=== PATIENT | female | born 1980 | race African-American/Black ===

== ENCOUNTER → 2017-03-01 | Outpatient (CLI) | payer MEDICAID ==
--- NOTE | 2017-03-01 16:03 | WOMENS IMAGING REPORT ---
EXAM DESCRIPTION: BILAT SCREENING MAMMO W/CAD COMPLETED DATE/TIME: 03/01/2017 3:48 pm REASON FOR STUDY: ROUTINE SCREENING; Z12.31 Z12.31 ENCNTR SCREEN MAMMOGRAM FOR MALIGNANT NEOPLASM O F ALTHEA COMPARISON: None. TECHNIQUE: Standard craniocaudal and mediolateral oblique views of each breast recorded using digita l acquisition. Bilateral exaggerated craniocaudad views were also obtained LIMITATIONS: None. FINDINGS: No masses, calcifications or architectural distortion. No areas of suspicion. Read with the assistance of CAD. .[facility] - R2 Cenova Version 1.3 .[facility] - R2 Cenova Version 1.3 .[facility] - R2 Cenova Version 2.4 .[facility] - R2 Cenova Version 2.4 .[facility] - R2 Bellows Tester Version 9.2 IMPRESSION: NORMAL MAMMOGRAM. BIRADS 1. BREAST DENSITY: b. There are scattered areas of fibroglandular density. BIRAD: 1 NEGATIVE RECOMMENDATION: ROUTINE SCREENING COMMENT: The patient has been notified of the results by letter per MQSA requirements. Additional no tification policies are in place for contacting patient with suspicious or incomplete findings. Quality ID #[id number]: The [employer] recommends an annual screening mammogram for women aged 40 years or over. This facility utilizes a reminder system to ensure that all patients receive reminder letters, and/or direct phone calls for appointments. This includes reminders for routine scr eening mammograms, diagnostic mammograms, or other Breast Imaging Interventions when appropriate. Th is patient will be placed in the appropriate reminder system. The [employer] (ACR) has developed recommendations for screening MRI of the breast s in certain patient populations, to be used in conjunction with mammography. Breast MRI surveillanc e may be appropriate for women with more than 20% lifetime risk of developing breast cancer as deter mined by genetic testing, significant family history of the disease, or history of mantle radiation f or Hodgkins Disease. ACR Practice Guidelines 2008. TECHNICAL DOCUMENTATION: FINDING NUMBER: (1) ASSESSMENT: (1) JOB ID: [id number] [employer]- All Rights Reserved
== END ==
LOC: WI 15:02
PROVIDERS: ATTEND Internal Medicine
DX: Z12.31 Encounter for screening mammogram for malignant neoplasm of breast (principal)
CPT/HCPCS: 77067; G0202

== ENCOUNTER 2017-08-28 19:15 | Emergency (ER) | payer MEDICAID ==
[2017-08-28 21:36] LABS: ABSOLUTE EOSINOPHILS # (AUTO) 0.1 10^3/uL (0.0-0.6); ABSOLUTE LYMPHOCYTES (AUTO) 1.9 10^3/uL (0.5-4.7); ABSOLUTE MONOCYTES (AUTO) 0.5 10^3/uL (0.1-1.4); ABSOLUTE NEUT (AUTO) 3.9 10^3/uL (1.7-8.2); BASOPHILS % (AUTO) 0.6 % (0-2); EOSINOPHILS % (AUTO) 1.9 % (0-6); HEMATOCRIT 39.5 % (36.0-47.0); HEMOGLOBIN 13.6 g/dL (12.0-15.5); LYMPHOCYTES % (AUTO) 29.5 % (13-45); MEAN CORPUSCULAR HEMOGLOBIN 31.4 pg (27.0-33.4); MEAN CORPUSCULAR HGB CONC 34.4 g/dL (32.0-36.0); MEAN CORPUSCULAR VOLUME 91 fl (80-97); MONOCYTES % (AUTO) 7.7 % (3-13); PLATELET COUNT 259 10^3/uL (150-450); RED BLOOD COUNT 4.33 10^6/uL (3.72-5.28); RED CELL DISTRIBUTION WIDTH 13.3 % (11.5-14.0); SEGMENTED NEUTROPHILS % (AUTO) 60.3 % (42-78); TOTAL CELLS COUNTED % (AUTO) 100 %; WHITE BLOOD COUNT 6.5 10^3/uL (4.0-10.5)
[2017-08-28 21:44] LABS: ALANINE AMINOTRANSFERASE 94 U/L (9-52); ALBUMIN 4.8 g/dL (3.5-5.0); ALKALINE PHOSPHATASE 52 U/L (38-126); ANION GAP 13 (5-19); ASPARTATE AMINO TRANSFERASE 68 U/L (14-36); BILIRUBIN,DIRECT 0.2 mg/dL (0.0-0.4); BILIRUBIN,TOTAL 3.6 mg/dL (0.2-1.3); BLOOD UREA NITROGEN 10 mg/dL (7-20); CALCIUM 9.9 mg/dL (8.4-10.2); CARBON DIOXIDE 32 mmol/L (22-30); CHLORIDE 103 mmol/L (98-107); GLUCOSE 87 mg/dL (75-110); POTASSIUM 3.4 mmol/L (3.6-5.0); SODIUM 147.6 mmol/L (137-145); TOTAL PROTEIN 8.2 g/dL (6.3-8.2)
--- NOTE | 2017-08-28 21:51 | ER Document Report ---
ED General - General Mode of Arrival: Ambulatory Information source: Patient TRAVEL OUTSIDE OF THE [place] IN LAST 30 DAYS: No <SADE MCPHERSON - Last Filed: 08/28/17 22:09> <PADMINI NICOLE - Last Filed: 08/28/17 22:45> - General Chief Complaint: Bloody Stools Stated Complaint: BLOOD IN STOOL Time Seen by Provider: 08/28/17 21:33 Notes: Patient is a 36 year old female hypertension, thyroid dysfunction, hyperlipidemia, diabetes, CAD, asthma presents to the emergency department complaining of bloody stools and dizziness onset today. Patient states she normally has half-formed, watery, "mucousy" stools but today she states the toilet was filled with bright red and dark blood, further stating this has never happened to her before. Patient's associated symptoms include epigastric abdominal pain, right hip pain and back pain. Patient states she was previously told she had internal hemorrhoids in May after a colonoscopy was performed. Patient states she is currently on Lomotil as needed for IBS. She states the last dose she took was 3 days ago. (SADE MCPHERSON) - Related Data Allergies/Adverse Reactions: No Known Allergies Allergy (Verified 08/28/17 19:17) Past Medical History - General Information source: Patient - Social History Smoking Status: Never Smoker Chew tobacco use (# tins/day): No Frequency of alcohol use: Rare Drug Abuse: None Family History: CAD, DM, Hyperlipidemia, Hypertension, Malignancy, Thyroid Disfunction Patient has suicidal ideation: No Patient has homicidal ideation: No - Past Medical History Cardiac Medical History: Reports: Hx Hypertension Pulmonary Medical History: Reports: Hx Asthma - as a child , Hx Pneumonia, Hx Sleep Apnea Neurological Medical History: Reports: Hx Migraine Endocrine Medical History: Reports: Hx Hypothyroidism GI Medical History: Reports: Hx Gastroesophageal Reflux Disease, Hx Irritable Bowel, Hx Liver Failure - problems not failure Musculoskeltal Medical History: Reports Hx Musculoskeletal Trauma - foot fracture right Psychiatric Medical History: Reports: Hx Anxiety Traumatic Medical History: Reports: Hx Fractures - foot right Past Surgical History: Reports: Hx Cholecystectomy - Immunizations Immunizations up to date: Yes Hx Diphtheria, Pertussis, Tetanus Vaccination: Yes Hx Pneumococcal Vaccination: 03/18/00 <SADE MCPHERSON - Last Filed: 06/13/18 22:09> Review of Systems - Review of Systems Constitutional: No symptoms reported EENT: No symptoms reported Cardiovascular: No symptoms reported Respiratory: No symptoms reported Gastrointestinal: See HPI, Abdominal pain, Black stools Genitourinary: No symptoms reported Female Genitourinary: No symptoms reported Musculoskeletal: See HPI, Back pain Skin: No symptoms reported Hematologic/Lymphatic: No symptoms reported Neurological/Psychological: No symptoms reported -: Yes All other systems reviewed and negative <SADE MCPHERSON - Last Filed: 08/28/17 22:09> Physical Exam - General General appearance: Appears well, Alert In distress: None - HEENT Head: Normocephalic, Atraumatic Eyes: Normal Conjunctiva: Normal Extraocular movements intact: Yes Pupils: PERRL Neck: Normal - Respiratory Respiratory status: No respiratory distress - Cardiovascular Rhythm: Regular - Abdominal Inspection: Morbidly Obese Distension: No distension Bowel sounds: Normal Tenderness: Nontender Organomegaly: No organomegaly - Back Back: Normal - Extremities General upper extremity: Normal ROM General lower extremity: Normal ROM - Neurological Neuro grossly intact: Yes Cognition: Normal Orientation: AAOx4 Sharla Coma Scale Eye Opening: Spontaneous Sharla Coma Scale Verbal: Oriented Sharla Coma Scale Motor: Obeys Commands Sharla Coma Scale Total: 15 Speech: Normal - Psychological Associated symptoms: Normal affect, Normal mood - Skin Skin Temperature: Warm Skin Moisture: Dry Skin Color: Normal <SADE MCPHERSON - Last Filed: 08/28/17 22:09> - Rectal Tenderness: No Stool: Heme positive Hemorrhoids: None. No: Anal fissure <PADMINI NICOLE - Last Filed: 08/28/17 22:45> - Vital signs Vitals: Temp Pulse Resp BP Pulse Ox 98.9 F 100 20 150/90 H 95 08/28/17 19:42 08/28/17 19:42 08/28/17 19:42 08/28/17 19:42 08/28/17 19:42 - Rectal Notes: There was no stool on digital rectal exam, there was trace reddish color in the mucus retrieved. There was no gross blood on the fingertip. (PADMINI NICOLE) Course - Laboratory Result Diagrams: 08/28/17 21:24 08/28/17 21:24 <SADE MCPHERSON - Last Filed: 08/28/17 22:09> - Laboratory Result Diagrams: 08/28/17 21:24 08/28/17 21:24 <PADMINI NICOLE - Last Filed: 08/28/17 22:45> - Vital Signs Vital signs: Temp Pulse Resp BP Pulse Ox 98.9 F 100 20 150/90 H 95 08/28/17 19:42 08/28/17 19:42 08/28/17 19:42 08/28/17 19:42 08/28/17 19:42 - Laboratory Laboratory results interpreted by me: 08/28/17 21:24 Sodium 147.6 H Potassium 3.4 L Carbon Dioxide 32 H Total Bilirubin 3.6 H AST 68 H ALT 94 H Discharge <SADE MCPHERSON - Last Filed: 08/28/17 22:09> <APDMINI NICOLE - Last Filed: 08/28/17 22:45> - Discharge Clinical Impression: Rectal bleeding High blood pressure Qualifiers: Hypertension type: essential hypertension Qualified Code(s): I10 - Essential ( primary) hypertension Condition: Stable Disposition: HOME, SELF-CARE Additional Instructions: Rectal Bleeding, Unclear Cause No definite cause has been found for the rectal bleeding you have experienced. Among the possible causes are internal or external hemorrhoids ( internal hemorrhoids can't be felt on the outside), an anal fissure (a crack at the anal ring), infections or inflammatory diseases of the colon, tumors or polyps, or diverticula (diverticula are outpouchings from the colon wall). To establish a cause for your bleeding (or at least make certain there is no serious problem such as a tumor), further evaluation will be necessary. This may include special X-rays, or passage of a scope up into the colon. Be sure to keep your follow-up appointment. Should you develop brisk bleeding, abdominal pain, fever, lightheadedness, or fever, call the doctor or return at once. Your blood pressure was a little elevated this evening. Be sure that you do not miss your blood pressure medications. Check your blood pressure over the next few days to be sure it returns to normal. 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 RETURN TO THE EMERGENCY ROOM IF ANY NEW OR WORSENING SYMPTOMS. Referrals: SHAGGY IRENE MD [Primary Care Provider] - Follow up in 3-5 days Scribe Attestation: 08/28/17 22:43 I personally performed the services described in the documentation, reviewed and edited the documentation which was dictated to the scribe in my presence, and it accurately records my words and actions. (PADMINI NICOLE) Scribe Documentation - Scribe Written by Gopal:: Gopal Vargas, 08/31/2017 21:59 acting as scribe for :: Kati <SADE MCPHERSON - Last Filed: 08/28/17 22:09>
[2017-08-28 23:03] VITALS: BP 122/66
== END 2017-08-28 22:59 | disposition home or self-care (01) ==
LOC: ER 19:15
DX: K62.5 Hemorrhage of anus and rectum (principal); I10 Essential (primary) hypertension; E11.9 Type 2 diabetes mellitus without complications; I25.10 Atherosclerotic heart disease of native coronary artery without angina pectoris; J45.909 Unspecified asthma, uncomplicated; K58.9 Irritable bowel syndrome, unspecified; R10.13 Epigastric pain; R42 Dizziness and giddiness; M25.551 Pain in right hip; M54.9 Dorsalgia, unspecified; Z87.19 Personal history of other diseases of the digestive system; Z90.49 Acquired absence of other specified parts of digestive tract
CPT/HCPCS: 36415; 80053; 82272; 85025; 99284

== ENCOUNTER 2018-07-03 21:12 | Emergency (ER) | payer MEDICAID ==
--- NOTE | 2018-07-03 22:18 | ER Document Report ---
ED Medical Screen (RME) - General Chief Complaint: Cyst Stated Complaint: ABCESS Time Seen by Provider: 07/03/18 22:16 Primary Care Provider: SHAGGY IRENE MD [Primary Care Provider] - Follow up as needed TRAVEL OUTSIDE OF THE [place] IN LAST 30 DAYS: No - HPI Notes: 07/03/18 22:16 Patient is a 37-year-old female who presents emergency department complaining of possible Bartholin abscess that is been present for about 1 month, but started draining over the last couple days. Patient states that she has had this before which needed incision and drainage. Denies MAYBERRY, fever, neck pain, URI, CP, SOB, Abd pain, or rash. I have treated and performed a rapid initial assessment of this patient. A comprehensive ED assessment and evaluation of the patient, analysis of test re sults and completion of medical decision making process will be conducted by additional ED providers. PHYSICAL EXAMINATION: GENERAL: Well-appearing, well-nourished and in no acute distress. A&Ox4. Answers questions appropriately. LUNGS: Breath sounds clear to auscultation bilaterally and equal. No wheezes rales or rhonchi. HEART: Regular rate and rhythm without murmurs, rubs, gallops. - Related Data Allergies/Adverse Reactions: No Known Allergies Allergy (Verified 08/28/17 19:17) Past Medical History - Social History Chew tobacco use (# tins/day): No Frequency of alcohol use: None Drug Abuse: None - Past Medical History Cardiac Medical History: Reports: Hx Hypertension Denies: Hx Heart Attack Pulmonary Medical History: Reports: Hx Asthma - as a child , Hx Pneumonia, Hx Sleep Apnea Denies: Hx Bronchitis, Hx COPD, Hx Tuberculosis Neurological Medical History: Reports: Hx Migraine. Denies: Hx Seizures Endocrine Medical History: Reports: Hx Hypothyroidism Renal/ Medical History: Denies: Hx Peritoneal Dialysis GI Medical History: Reports: Hx Gastroesophageal Reflux Disease, Hx Irritable Bowel, Hx Liver Failure - problems not failure Musculoskeltal Medical History: Denies Hx Arthritis, Reports Hx Musculoskeletal Trauma - foot fracture right Psychiatric Medical History: Reports: Hx Anxiety Traumatic Medical History: Reports: Hx Fractures - foot right Past Surgical History: Reports: Hx Cholecystectomy. Denies: Hx Pacemaker - Immunizations Immunizations up to date: Yes Hx Diphtheria, Pertussis, Tetanus Vaccination: Yes Physical Exam - Vital signs Vitals: Temp Pulse Resp BP Pulse Ox 98.7 F 87 16 154/97 H 96 07/03/18 21:28 07/03/18 21:28 07/03/18 21:28 07/03/18 21:28 07/03/18 21:28 Course - Vital Signs Vital signs: Temp Pulse Resp BP Pulse Ox 98.7 F 87 16 154/97 H 96 07/03/18 21:28 07/03/18 21:28 07/03/18 21:28 07/03/18 21:28 07/03/18 21:28 Doctor's Discharge - Discharge Referrals: SHAGGY IRENE MD [Primary Care Provider] - Follow up as needed
--- NOTE | 2018-07-04 01:40 | ER Document Report ---
ED General - General Chief Complaint: Cyst Stated Complaint: ABCESS Time Seen by Provider: 07/03/18 22:16 Primary Care Provider: MARY MANRIQUE MD [ACTIVE STAFF] - 07/07/18 Notes: Patient is a pleasant 37-year-old female presents with complaint of swelling to her labia. She says she is unsure if she has both events just. Said swelling started today. States she noticed a little bit of possible clear drainage e arlier but that has since stopped. No fevers. She says it is mildly painful. No other complaints at this time. TRAVEL OUTSIDE OF THE [place] IN LAST 30 DAYS: No - Related Data Allergies/Adverse Reactions: No Known Allergies Allergy (Verified 08/28/17 19:17) Past Medical History - Social History Smoking Status: Never Smoker Chew tobacco use (# tins/day): No Frequency of alcohol use: None Drug Abuse: None Family History: CAD, DM, Hyperlipidemia, Hypertension, Malignancy, Thyroid Disfunction Patient has suicidal ideation: No Patient has homicidal ideation: No - Past Medical History Cardiac Medical History: Reports: Hx Hypertension Denies: Hx Heart Attack Pulmonary Medical History: Reports: Hx Asthma - as a child , Hx Pneumonia, Hx Sleep Apnea Denies: Hx Bronchitis, Hx COPD, Hx Tuberculosis Neurological Medical History: Reports: Hx Migraine. Denies: Hx Seizures Endocrine Medical History: Reports: Hx Hypothyroidism Renal/ Medical History: Denies: Hx Peritoneal Dialysis GI Medical History: Reports: Hx Gastroesophageal Reflux Disease, Hx Irritable Bowel, Hx Liver Failure - problems not failure Musculoskeletal Medical History: Denies Hx Arthritis, Reports Hx Musculoskeletal Trauma - foot fracture right Psychiatric Medical History: Reports: Hx Anxiety Traumatic Medical History: Reports: Hx Fractures - foot right Past Surgical History: Reports: Hx Cholecystectomy. Denies: Hx Pacemaker - Immunizations Immunizations up to date: Yes Hx Diphtheria, Pertussis, Tetanus Vaccination: Yes Hx Pneumococcal Vaccination: 03/18/00 Review of Systems - Review of Systems Notes: My Normal Review Basic REVIEW OF SYSTEMS: CONSTITUTIONAL : Denies fever, chills, or sweats. Denies recent illness. RESPIRATORY: Denies cough, cold, or chest congestion. Denies shortness of breath, difficulty breathing, or wheezing. GASTROINTESTINAL: Denies abdominal pain. Denies nausea, vomiting, or diarrhea. GENITOURINARY: Denies difficulty urinating, painful urination, burning, frequency, or blood in urine. FEMALE GENITOURINARY: Right-sided labial swelling. MUSCULOSKELETAL: Denies neck or back pain or joint pain or swelling. SKIN: Denies rash or skin lesions. ALL OTHER SYSTEMS REVIEWED AND NEGATIVE. Physical Exam - Vital signs Vitals: Temp Pulse Resp BP Pulse Ox 98.7 F 87 16 154/97 H 96 07/03/18 21:28 07/03/18 21:28 07/03/18 21:28 07/03/18 21:28 07/03/18 21:28 - Notes Notes: General Appearance: Well nourished, alert, cooperative, no acute distress, no obvious discomfort. Vitals: reviewed, See vital signs table. Eyes: PERRL, EOMI, Conjuctiva clear Abdomen: Normal BS, soft, No rigidity, No abdominal tenderness, No guarding, no rebound, no abdominal masses, no organomegaly Genitalia: Pelvic exam performed with female nurse at bedside, Cheryl Pink. Patient has a very large swelling to the right labia. Is not abnormally red or erythematous. It is not hot or warm to touch. It does not appear infected. The area of swelling is tense but fluidlike and feeling. Leg is so swollen that I cannot see down into the vaginal introitus. It is very balloon-like. No abnormal drainage. No pustules seen. Skin: warm, dry, appropriate color, no rash Neuro: speech clear, oriented x 3, normal affect, responds appropriately to questions. Course - Re-evaluation Re-evalutation: 07/04/18 05:44 Patient's labial swelling did not seem consistent with Bartholin gland cyst. I therefore spoke with gynecology, Dr. Manrique. She says is likely that she probably has an inclusion cyst to the labia. She said that the patient come to the office on Saturday and she will evaluate her and determine the best way to approach her labial swelling. There is no abnormal warmth or redness to the labia. It is not seen consistent with infection or abscess. I informed patient of the plan and she is agreeable to it. I encouraged her return to ER immediately if she has severe pain, fevers, spreading redness, or if she has any further concerns. Patient agrees with plan and will be discharged home. Dictation of this chart was performed using voice recognition software; therefore, there may be some unintended grammatical errors. - Vital Signs Vital signs: Temp Pulse Resp BP Pulse Ox 98.3 F 80 19 159/90 H 98 07/04/18 02:05 07/04/18 02:05 07/04/18 02:05 07/04/18 02:05 07/04/18 02:05 Discharge - Discharge Clinical Impression: Labial swelling Condition: Good Disposition: HOME, SELF-CARE Additional Instructions: I discussed your case with Dr. Mary Manrique. 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 She suspects that swelling labia could be related to a vaginal inclusion cyst. This may eventually require drainage. She wants to come to the office on Saturday. Please call the office this morning and inform the aoc plans intelligence officer chief that you are seen in the ER and Dr. Manrique wants to see you on Saturday in the office to treat your vaginal swelling. Please return to the ER immediately if you have redness or swelling spreading beyond the vaginal labia, inability to urinate, fevers, or severe pain. Forms: Return to Work Referrals: MARY MANRIQUE MD [ACTIVE STAFF] - 07/07/18
[2018-07-04 02:10] VITALS: BP 159/90
== END 2018-07-04 02:11 | disposition home or self-care (01) ==
LOC: ER 21:12
DX: N90.89 Other specified noninflammatory disorders of vulva and perineum (principal); I10 Essential (primary) hypertension; J45.909 Unspecified asthma, uncomplicated
CPT/HCPCS: 99283

== ENCOUNTER 2018-07-06 08:43 | Emergency (ER) | payer MEDICAID ==
[2018-07-06 10:18] LABS: ABSOLUTE BASOPHILS # (AUTO) 0.1 10^3/uL (0.0-0.2); ABSOLUTE EOSINOPHILS # (AUTO) 0.3 10^3/uL (0.0-0.6); ABSOLUTE LYMPHOCYTES (AUTO) 1.9 10^3/uL (0.5-4.7); ABSOLUTE MONOCYTES (AUTO) 0.4 10^3/uL (0.1-1.4); BASOPHILS % (AUTO) 0.8 % (0-2); EOSINOPHILS % (AUTO) 3.3 % (0-6); HEMATOCRIT 38.1 % (36.0-47.0); HEMOGLOBIN 13.6 g/dL (12.0-15.5); LYMPHOCYTES % (AUTO) 24.8 % (13-45); MEAN CORPUSCULAR HEMOGLOBIN 31.8 pg (27.0-33.4); MEAN CORPUSCULAR HGB CONC 35.6 g/dL (32.0-36.0); MEAN CORPUSCULAR VOLUME 89 fl (80-97); MONOCYTES % (AUTO) 5.5 % (3-13); PLATELET COUNT 258 10^3/uL (150-450); RED BLOOD COUNT 4.27 10^6/uL (3.72-5.28); RED CELL DISTRIBUTION WIDTH 13.1 % (11.5-14.0); SEGMENTED NEUTROPHILS % (AUTO) 65.6 % (42-78); TOTAL CELLS COUNTED % (AUTO) 100 %; WHITE BLOOD COUNT 7.6 10^3/uL (4.0-10.5)
[2018-07-06 10:36] LABS: ALANINE AMINOTRANSFERASE 28 U/L (9-52); ALBUMIN 4.6 g/dL (3.5-5.0); ALKALINE PHOSPHATASE 69 U/L (38-126); ANION GAP 7 (5-19); ASPARTATE AMINO TRANSFERASE 34 U/L (14-36); BILIRUBIN,DIRECT 0.5 mg/dL (0.0-0.4); BILIRUBIN,TOTAL 3.8 mg/dL (0.2-1.3); BLOOD UREA NITROGEN 20 mg/dL (7-20); CARBON DIOXIDE 29 mmol/L (22-30); CHLORIDE 104 mmol/L (98-107); GLUCOSE 99 mg/dL (75-110); POTASSIUM 3.4 mmol/L (3.6-5.0); SODIUM 140.2 mmol/L (137-145); TOTAL PROTEIN 8.5 g/dL (6.3-8.2)
[2018-07-06] MEDS ORDERED: KETOROLAC TROMETHAMINE INJ/PF 30 MG/1 ML SDV IV ONE (10:57)
[2018-07-06] MEDS ORDERED: CEPHALEXIN 500 MG CAPSULE PO ONE (10:57)
[2018-07-06 11:51] VITALS: BP 146/92
--- NOTE | 2018-07-06 13:35 | ER Document Report ---
Entered by SADE MCPHERSON SCRIBE 07/06/18 0950 Acting as scribe for:PADMINI NICOLE MD ED General - General Chief Complaint: Abscess Stated Complaint: POSSIBLE CYST Time Seen by Provider: 07/06/18 09:30 Primary Care Provider: FIORDALIZA MONROE MD [Primary Care Provider] - Follow up as needed Mode of Arrival: Ambulatory Information source: Patient Notes: Patient is a 37 year old female with HTN, hypothyroidism presents to the emergency department complaining of vaginal pain onset 3 days ago. Patient states she presented to the emergency department on 06/29/2018 complaining labial swelling and was discharged home with instructions to follow up with [facility], Dr. Carrera, on 07/07/2018 for a possible inclusion abscess. She states she was unable to make an appointment and her labial swelling and pain has significantly worsened since presenting to the emergency department 3 days ago. Patient is currently on her menstrual period. TRAVEL OUTSIDE OF THE [place] IN LAST 30 DAYS: No - Related Data Allergies/Adverse Reactions: No Known Allergies Allergy (Verified 07/06/18 08:48) Past Medical History - General Information source: Patient - Social History Smoking Status: Never Smoker Cigarette use (# per day): No Chew tobacco use (# tins/day): No Smoking Education Provided: No Frequency of alcohol use: None Family History: CAD, DM, Hyperlipidemia, Hypertension, Malignancy, Thyroid Disfunction - Past Medical History Cardiac Medical History: Reports: Hx Hypertension Pulmonary Medical History: Reports: Hx Asthma - as a child , Hx Pneumonia, Hx Sleep Apnea Neurological Medical History: Reports: Hx Migraine Endocrine Medical History: Reports: Hx Hypothyroidism GI Medical History: Reports: Hx Gastroesophageal Reflux Disease, Hx Irritable Bowel Musculoskeletal Medical History: Reports Hx Musculoskeletal Trauma - foot fracture right Psychiatric Medical History: Reports: Hx Anxiety Traumatic Medical History: Reports: Hx Fractures - foot right Past Surgical History: Reports: Hx Cholecystectomy - Immunizations Immunizations up to date: Yes Hx Diphtheria, Pertussis, Tetanus Vaccination: Yes Hx Pneumococcal Vaccination: 03/18/00 Review of Systems - Review of Systems Constitutional: No symptoms reported EENT: No symptoms reported Cardiovascular: No symptoms reported Respiratory: No symptoms reported Gastrointestinal: No symptoms reported Genitourinary: No symptoms reported Female Genitourinary: See HPI, Other - labial swelling and pain Musculoskeletal: No symptoms reported Skin: No symptoms reported Hematologic/Lymphatic: No symptoms reported Neurological/Psychological: No symptoms reported -: Yes All other systems reviewed and negative Physical Exam - Vital signs Vitals: Temp Pulse Resp BP Pulse Ox 98.1 F 90 16 154/93 H 99 07/06/18 09:24 07/06/18 09:24 07/06/18 09:24 07/06/18 09:24 07/06/18 09:24 - Notes Notes: GENERAL: Alert, interacts well. No acute distress. HEAD: Normocephalic, atraumatic. EYES: Pupils equal, round, and reactive to light. Extraocular movements intact. ENT: Oral mucosa moist, tongue midline. NECK: Full range of motion. Supple. Trachea midline. LUNGS: Clear to auscultation bilaterally, no wheezes, rales, or rhonchi. No respiratory distress. HEART: Regular rate and rhythm. No murmurs, gallops, or rubs. ABDOMEN: Soft, non-tender. Non-distended. Bowel sounds present in all 4 quadrants. No guarding, rigidity, or rebound. EXTREMITIES: Moves all 4 extremities spontaneously. No edema. No cyanosis. : Large abscess with approximately 8cm of induration on right labia. Within that area, there is a 4cm area of bulging, tender to palpate. NEUROLOGICAL: Alert and oriented x3. Normal speech. PSYCH: Normal affect, normal mood. SKIN: Warm, dry, normal turgor. No rashes or lesions noted. Course - Re-evaluation Re-evalutation: 07/06/18 10:51 Patient was seen and examined by Dr. Parry from the [facility] service. He requested she be placed on Keflex 500 mg 4 times daily and pain medication and will follow-up in the office tomorrow morning. - Vital Signs Vital signs: Temp Pulse Resp BP Pulse Ox 98.1 F 90 16 154/93 H 99 07/06/18 09:24 07/06/18 09:24 07/06/18 09:24 07/06/18 09:24 07/06/18 09:24 - Laboratory Result Diagrams: 07/06/18 10:06 07/06/18 10:06 Laboratory results interpreted by me: 07/06/18 10:06 Potassium 3.4 L Total Bilirubin 3.8 H Direct Bilirubin 0.5 H Total Protein 8.5 H - Consults Dr. Parry Time consulted: 10:05 Consulted provider: will come to ER Discharge - Discharge Clinical Impression: Abscess of right genital labia Condition: Stable Disposition: HOME, SELF-CARE Additional Instructions: Abscess You have an abscess (boil). This a pus-forming infection, usually due to staph. Some boils may be left to drain on their own, but most require lancing. From the time the tender lump first appears, it may be three or four days before the abscess is ready to logan. Local heat and rest help at this stage of treatment. An antibiotic may prevent spread of the infection. Once the abscess is opened, packing may be placed into it. This is done so pus is not sealed inside by premature closure of the cavity. The packing will be removed at your follow-up visit or you may be advised to remove it yourself at home. Sometimes this packing must be replaced a few times during healing. The wound will heal with surprisingly little scar. Depending on the size and location of an abscess, healing can take one to four weeks. You may shower and wash the area around the incision site two or three times a day. Antibiotics may be prescribed, but are usually not necessary after an abscess has been drained. If you develop fever, chilling, worsening pain, or increasing swelling in the area, call the doctor or return immediately. Take medications as prescribed. Follow-up with Dr. Parry at [facility] tomorrow morning. RETURN TO THE EMERGENCY ROOM IF ANY NEW OR WORSENING SYMPTOMS. Prescriptions: Cephalexin Monohydrate [Keflex 500 mg Capsule] 500 mg PO QID #20 capsule Oxycodone HCl/Acetaminophen [Percocet 5-325 mg Tablet] 1 tab PO Q4 PRN #12 tablet PRN Reason: For Pain Referrals: FIORDALIZA MONROE MD [Primary Care Provider] - Follow up as needed [facility] [Provider Group] - Follow up tomorrow Scribe Attestation: 07/06/18 10:13 I personally performed the services described in the documentation, reviewed and edited the documentation which was dictated to the scribe in my presence, and it accurately records my words and actions. I personally performed the services described in the documentation, reviewed and edited the documentation which was dictated to the scribe in my presence, and it accurately records my words and actions.
== END 2018-07-06 11:50 | disposition home or self-care (01) ==
LOC: ER 08:43
DX: N76.4 Abscess of vulva (principal); I10 Essential (primary) hypertension; R10.2 Pelvic and perineal pain; E03.9 Hypothyroidism, unspecified; Z90.49 Acquired absence of other specified parts of digestive tract
CPT/HCPCS: 99283; 96374; 36415; 84703; 85025; 80053; J1885